=== PATIENT | male | born 1975 | race Caucasian/White ===

== ENCOUNTER 2021-01-24 07:09 | Inpatient (IN) | payer MEDICAID, SELFPAY ==
[2021-01-24] VITALS (58 sets, daily range): BP systolic 115–224; BP diastolic 78–155; PULSE 46–114; RESP 0–27; TEMP 36.4–37.1; O2SAT 91–100; BMI 33.9
[2021-01-24 07:33] LABS: Glucose Point of Care 137 mg/dL (70-110)
[2021-01-24] MEDS: nicardipine 20 MG/200 ML PREMIX 50 MG IV (07:33)
--- NOTE | 2021-01-24 07:40 | CT_ITS ---
WS: [id number] CT HEAD NONCONTRAST HISTORY: Symptoms of Acute Stroke TECHNIQUE: Contiguous axial imaging performed through the brain in 2.5 mm imaging. Bone and soft tiss ue windows. Sagittal and coronal reformats reviewed. All CT scans at [facility] use at ast one of these dose optimization techniques: automated exposure control; mA and/or kV adjustment pe r patient size (includes targeted exams where dose is matched to clinical indication); or iterative r econstruction. DLP: 944.86 mGy.cm COMPARISON: 01/31/2017 No evidence for an acute intracranial hemorrhage. New area of decreased attenuation in obliteration o f the helm-white matter differentiation involving the posterior LEFT parietal lobe. Additional remote infarct in the RIGHT cerebellum with volume loss. There are a few areas of decreased attenuation in the anterior limbs of the internal capsule from prior lacunae. There are mild atrophy. Ventricles: Normal size with no hydrocephalus. Paranasal sinuses: As visualized are clear. Mastoid air cells: Well pneumatized. Calvarium and scalp: Skull is intact with no soft tissue edema or swelling. CT/CT head wo con* [id number] IMPRESSION: 1. Suspicious for small acute infarct in the posterior LEFT parietal lobe. 2. Remote RIGHT cerebellar infarct with encephalomalacia. 3. Small lacunar infarcts in the anterior limbs of the internal capsules. Notified Osman Ugarte DO at 01/24/2021 8:14 AM.
--- NOTE | 2021-01-24 07:40 | ECG_ITS ---
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 Measurements Intervals [place] Rate: 77 P: 31 CA: 153 QRS: -12 QRSD: 105 T: 26 QT: 390 QTc: 443 Interpretive Statements SINUS RHYTHM POSSIBLE LEFT VENTRICULAR HYPERTROPHY [VOLTAGE CRITERIA PLUS LAE OR QRS WIDENING] POSSIBLE SEPTAL MYOCARDIAL INFARCTION , OF INDETERMINATE AGE [30 ms Q WAVE IN V1/V2] Compared to ECG 07/26/2017 00:11:39 Myocardial infarct finding now present Electronically Signed On 01-24-2021 12:55:22 CDT by Debbi Langley M.D. [id number]
--- NOTE | 2021-01-24 07:41 | W.ED.NEUROSD ---
HPI - Neuro Symptoms/Deficit General: Chief Complaint: Neuro Symptoms/Deficit Stated Complaint: STROKE SYMPTOMS Time Seen by Provider: 01/24/21 07:18 History of Present Illness: HPI Narrative: 45-year-old male presents emergency room with complaint of confusion difficulty speaking. It began last night. He denies any chest pain or difficulty breathing. Patient previously had a stroke. He was could previously on Eliquis because of atrial fibrillation but had stopped it. Onset (ago): hour(s) (>12 hrs) Timing confirmed by: spouse (Common-law ) Location: speech History of same: No Severity: mild Quality: weak Relieving factors: none Exacerbating factors: none Context: gradual onset Associated symptoms: Deny chest pain, cough, diaphoresis, fevers/chills, headache(s), anorexia, malaise, nausea, seizures, short of breath, syncope, tingling, vertigo, vomiting or weakness Treatments Prior to Arrival: none Review of Systems Const: Denies: malaise or diaphoresis ENMT: Denies: throat pain, ear or mastoid pain, nasal discharge or nasal congestion Card: Denies: chest pain or syncope Resp: Denies: dyspnea, productive cough or non-productive cough GI: Denies: nausea or vomiting : Denies: flank pain, dysuria, urinary frequency or urinary urgency Skin/Breast: Denies: rash or pruritus Neuro: Denies: headache(s) or vertigo PFSH ED PFSH: Medical History (Updated 01/24/21 @ 13:45 by Osman Ugarte DO) Atrial fibrillation CVA (cerebral vascular accident) Prior history of cerebellar CVA 2017 Hypertension Nephrolithiasis Surgical History (Updated 01/24/21 @ 10:51 by Moustapha Braden MD) H/O hand surgery History of cholecystectomy Family History (Updated 01/24/21 @ 10:52 by Moustapha Braden MD) Other Diabetes Stroke Social History (Updated 01/24/21 @ 10:52 by Moustapha Braden MD) Smoking and tobacco status: current every day smoker Alcohol intake: never Substance/Drug Use: current Substance/Drug use type: Marijuana NIH stroke score NIHSS: Level Of Consciousness - 1a: 0 Level Of Consciousness Questions - 1b: Both Correct Level Of Consciousness Commands - 1c: Both Correct Best Gaze - 2: Normal Visual Yanez - 3: No Visual Loss Facial Palsy - 4: Normal Motor Arm Right - 5: No Drift Motor Arm Left - 5: No Drift Motor Leg Right - 6: No Drift Motor Leg Left - 6: No Drift Limb Ataxia - 7: Absent Sensory - 8: Normal Best Language - 9: No Aphasia Dysarthia - 10: Mild/Moderate Dysarthia Extinction And Inattention - 11: 0 Score: Total Score: 1 Physical Exam Const: COMMON NORMALS: no acute distress GENERAL APPEARANCE: cooperative and comfortable ORIENTATION/CONSCIOUSNESS: Yes awake, Yes oriented to person, Yes oriented to place and Yes oriented to time HENMT: COMMON NORMALS: normocephalic, atraumatic and hearing grossly normal bilaterally HEAD & SCALP: normocephalic and atraumatic Eye: COMMON NORMALS: Equal, round and reactive pupils present, EOMs intact bilaterally, conjunctivae normal and no scleral icterus CONJUNCTIVA: Yes conjunctivae normal PUPIL: Yes Equal, round and reactive pupils present Neck/C-Spine: COMMON NORMALS: no JVD Resp: COMMON NORMALS: normal respiratory effort, No retractions, No use of accessory muscles and clear to auscultation bilaterally AUSCULTATION: clear to auscultation bilaterally Cardio: COMMON NORMALS: no JVD, regular rate, regular rhythm and No murmurs present (Cardio) RATE: regular rate RHYTHM: regular rhythm GI: COMMON NORMALS: Soft to palpation and No hepatosplenomegaly present AUSCULTATION: Yes normoactive bowel sounds PALPATION: Yes Soft to palpation, No Tenderness to palpation present (GI), No Guarding due to palpation present (GI) and Yes No hepatosplenomegaly present Extremity: COMMON NORMALS: normal to inspection, capillary refill normal, no clubbing, cyanosis or edema, no calf tenderness and no pedal edema Neuro: SENSORIUM/ORIENTATION: Yes oriented to person, Yes oriented to place and Yes oriented to time Skin: COMMON NORMALS: no rashes or lesions noted GENERAL SKIN EXAM: no rashes or lesions noted Course Vital Signs: Vital signs: Vital Signs Temperature 97.5 F L 01/24/21 07:21 Pulse Rate 86 01/24/21 12:15 Respiratory Rate 11 L 01/24/21 12:15 Blood Pressure 138/90 01/24/21 12:15 Pulse Oximetry 96 01/24/21 12:15 MDM - Neuro Symptoms/Deficit MDM Narrative: Medical decision making narrative: Initial stroke score was 1 with some dysarthria. Going back to the room he did actually worsen a little bit he was still able to do [id number] had no pronator pronator drift drift visual deficits or numbness or tingling but had increased dysarthria was still following commands. Symptoms began last night. CT of his head shows an area in the left parietal that is evolving. There is nothing on the CTA. We have started him on nicardipine his initial blood pressure 224 155 goal is to keep him around 180 systolic. Discussed with hospitalist orders written Lab Data: Labs: Lab Results 01/24/21 01/24/21 01/24/21 Range/Units 07:25 07:25 07:25 WBC 7.9 (4.0-10.0) 10^3/ uL RBC 5.70 H (4.1-5.3) 10^6/u L Hgb 16.7 H (11.7-16.6) g/dL Hct 50.4 (42.0-52.0) % MCV 88.4 (80-94) fL MCH 29.3 (28.0-34.0) pg MCHC 33.1 (30.0-36.0) g/dL RDW 12.4 (12.1-15.1) % Plt Count 238 (130-400) 10^3/c mm MPV 11.3 H (7.4-10.4) fL Neut % (Auto) 55.2 % Lymph % (Auto) 31.2 % [place] % (Auto) 7.8 % Eos % (Auto) 4.2 % Baso % (Auto) 0.6 % Neut # (Auto) 4.37 (1.8-7.7) 10^3/u L Lymph # (Auto) 2.5 (0.8-4.8) 10^3/u L [place] # (Auto) 0.6 (0.2-0.9) 10^3/u L Eos # (Auto) 0.3 (0.0-0.8) 10^3/u L Baso # (Auto) 0.1 (0.0-0.1) 10^3/u L Nucleated RBC % (a uto) 0 % Nucleated RBCs # 0.0 /100WBC PT 12.80 (12.1-14.9) SECO NDS INR 0.93 (0.8-1.2) APTT 24.1 (23.9-36.7) SECO NDS Sodium (136-145) mmol/L Potassium (3.5-5.1) mmol/L Chloride (98-107) mmol/L Carbon Dioxide (22-29) mmol/L Anion Gap (5-19) BUN (6-20) mg/dL Creatinine (0.7-1.2) mg/dL GFR Calculation (90-130) mL/min Glucose (65-115) mg/dL POC Glucose 137 H (70-110) mg/dL Estimat Average Gl ucose Hemoglobin A1c (4.0-6.0) % Calculated Osmolal ity (285-295) mOsm/k g Calcium (8.5-10.5) mg/dL Total Bilirubin (0.15-1.2) mg/dL AST (0-40) U/L ALT (0-41) U/L Alkaline Phosphata se (40-130) IU/L Troponin T Baselin e (0-15) ng/L Troponin T 120 Min [place] (0-15) ng/L Delta Troponin T (0-10) ABS# Total Protein (6.6-8.7) g/dL Albumin (3.5-5.2) g/dL Globulin (1.3-4.6) g/dL TSH (0.27-4.20) uIU/ mL Urine Color (Yellow) Urine Appearance (CLEAR) Urine pH (5-7) Ur Specific Gravit y (1.005-1.030) Urine Protein (Negative) Urine Glucose (UA) (Normal) Urine Ketones (Negative) Urine Blood (Negative) Urine Nitrate (Negative) Urine Bilirubin (Negative) Urine Urobilinogen (Negative) mg/dL Ur Leukocyte Chioma ase (Negative) Urine RBC (0-2) /hpf Urine WBC (0-5) /hpf Ur Squamous Epith Cells (0-5) /hpf Amorphous Sediment Urine Bacteria (NONE) /hpf Urine Opiates Scre en (Negative) ng/mL Ur Barbiturates Sc reen (Negative) ng/mL Ur Phencyclidine S crn (Negative) ng/mL Ur Amphetamines Sc reen (Negative) ng/mL U Benzodiazepines Scrn (Negative) ng/mL Urine Cocaine Scre en (Negative) ng/mL U Marijuana (THC) Screen (Negative) ng/mL 01/24/21 01/24/21 01/24/21 Range/Units 07:25 07:25 07:25 WBC (4.0-10.0) 10^3/ uL RBC (4.1-5.3) 10^6/u L Hgb (11.7-16.6) g/dL Hct (42.0-52.0) % MCV (80-94) fL MCH (28.0-34.0) pg MCHC (30.0-36.0) g/dL RDW (12.1-15.1) % Plt Count (130-400) 10^3/c mm MPV (7.4-10.4) fL Neut % (Auto) % Lymph % (Auto) % [place] % (Auto) % Eos % (Auto) % Baso % (Auto) % Neut # (Auto) (1.8-7.7) 10^3/u L Lymph # (Auto) (0.8-4.8) 10^3/u L [place] # (Auto) (0.2-0.9) 10^3/u L Eos # (Auto) (0.0-0.8) 10^3/u L Baso # (Auto) (0.0-0.1) 10^3/u L Nucleated RBC % (a uto) % Nucleated RBCs # /100WBC PT (12.1-14.9) SECO NDS INR (0.8-1.2) APTT (23.9-36.7) SECO NDS Sodium 140 (136-145) mmol/L Potassium 4.3 (3.5-5.1) mmol/L Chloride 106 (98-107) mmol/L Carbon Dioxide 24 (22-29) mmol/L Anion Gap 14.3 (5-19) BUN 13 (6-20) mg/dL Creatinine 1.0 (0.7-1.2) mg/dL GFR Calculation 81.6 L (90-130) mL/min Glucose 135 H (65-115) mg/dL POC Glucose (70-110) mg/dL Estimat Average Gl ucose 108 Hemoglobin A1c 5.4 (4.0-6.0) % Calculated Osmolal ity 292 (285-295) mOsm/k g Calcium 8.7 (8.5-10.5) mg/dL Total Bilirubin 0.2 (0.15-1.2) mg/dL AST 14 (0-40) U/L ALT 26 (0-41) U/L Alkaline Phosphata se 91 (40-130) IU/L Troponin T Baselin e 15 (0-15) ng/L Troponin T 120 Min [place] (0-15) ng/L Delta Troponin T (0-10) ABS# Total Protein 6.5 L (6.6-8.7) g/dL Albumin 4.1 (3.5-5.2) g/dL Globulin 2.4 (1.3-4.6) g/dL TSH (0.27-4.20) uIU/ mL Urine Color (Yellow) Urine Appearance (CLEAR) Urine pH (5-7) Ur Specific Gravit y (1.005-1.030) Urine Protein (Negative) Urine Glucose (UA) (Normal) Urine Ketones (Negative) Urine Blood (Negative) Urine Nitrate (Negative) Urine Bilirubin (Negative) Urine Urobilinogen (Negative) mg/dL Ur Leukocyte Chioma ase (Negative) Urine RBC (0-2) /hpf Urine WBC (0-5) /hpf Ur Squamous Epith Cells (0-5) /hpf Amorphous Sediment Urine Bacteria (NONE) /hpf Urine Opiates Scre en (Negative) ng/mL Ur Barbiturates Sc reen (Negative) ng/mL Ur Phencyclidine S crn (Negative) ng/mL Ur Amphetamines Sc reen (Negative) ng/mL U Benzodiazepines Scrn (Negative) ng/mL Urine Cocaine Scre en (Negative) ng/mL U Marijuana (THC) Screen (Negative) ng/mL 01/24/21 01/24/21 01/24/21 Range/Units 07:25 07:56 07:56 WBC (4.0-10.0) 10^3/ uL RBC (4.1-5.3) 10^6/u L Hgb (11.7-16.6) g/dL Hct (42.0-52.0) % MCV (80-94) fL MCH (28.0-34.0) pg MCHC (30.0-36.0) g/dL RDW (12.1-15.1) % Plt Count (130-400) 10^3/c mm MPV (7.4-10.4) fL Neut % (Auto) % Lymph % (Auto) % [place] % (Auto) % Eos % (Auto) % Baso % (Auto) % Neut # (Auto) (1.8-7.7) 10^3/u L Lymph # (Auto) (0.8-4.8) 10^3/u L [place] # (Auto) (0.2-0.9) 10^3/u L Eos # (Auto) (0.0-0.8) 10^3/u L Baso # (Auto) (0.0-0.1) 10^3/u L Nucleated RBC % (a uto) % Nucleated RBCs # /100WBC PT (12.1-14.9) SECO NDS INR (0.8-1.2) APTT (23.9-36.7) SECO NDS Sodium (136-145) mmol/L Potassium (3.5-5.1) mmol/L Chloride (98-107) mmol/L Carbon Dioxide (22-29) mmol/L Anion Gap (5-19) BUN (6-20) mg/dL Creatinine (0.7-1.2) mg/dL GFR Calculation (90-130) mL/min Glucose (65-115) mg/dL POC Glucose (70-110) mg/dL Estimat Average Gl ucose Hemoglobin A1c (4.0-6.0) % Calculated Osmolal ity (285-295) mOsm/k g Calcium (8.5-10.5) mg/dL Total Bilirubin (0.15-1.2) mg/dL AST (0-40) U/L ALT (0-41) U/L Alkaline Phosphata se (40-130) IU/L Troponin T Baselin e (0-15) ng/L Troponin T 120 Min [place] (0-15) ng/L Delta Troponin T (0-10) ABS# Total Protein (6.6-8.7) g/dL Albumin (3.5-5.2) g/dL Globulin (1.3-4.6) g/dL TSH 0.56 (0.27-4.20) uIU/ mL Urine Color Yellow (Yellow) Urine Appearance Clear (CLEAR) Urine pH 6.5 (5-7) Ur Specific Gravit y 1.020 (1.005-1.030) Urine Protein 1+ H (Negative) Urine Glucose (UA) Norm (Normal) Urine Ketones Negative (Negative) Urine Blood Neg (Negative) Urine Nitrate Negative (Negative) Urine Bilirubin Neg (Negative) Urine Urobilinogen Norm (Negative) mg/dL Ur Leukocyte Chioma ase Negative (Negative) Urine RBC None (0-2) /hpf Urine WBC Rare (0-5) /hpf Ur Squamous Epith Cells None (0-5) /hpf Amorphous Sediment Not Reportable Urine Bacteria Trace (NONE) /hpf Urine Opiates Scre en Negative (Negative) ng/mL Ur Barbiturates Sc reen Negative (Negative) ng/mL Ur Phencyclidine S crn Negative (Negative) ng/mL Ur Amphetamines Sc reen Negative (Negative) ng/mL U Benzodiazepines Scrn Negative (Negative) ng/mL Urine Cocaine Scre en Negative (Negative) ng/mL U Marijuana (THC) Screen Positive H (Negative) ng/mL 01/24/21 Range/Units 10:00 WBC (4.0-10.0) 10^3/ uL RBC (4.1-5.3) 10^6/u L Hgb (11.7-16.6) g/dL Hct (42.0-52.0) % MCV (80-94) fL MCH (28.0-34.0) pg MCHC (30.0-36.0) g/dL RDW (12.1-15.1) % Plt Count (130-400) 10^3/c mm MPV (7.4-10.4) fL Neut % (Auto) % Lymph % (Auto) % [place] % (Auto) % Eos % (Auto) % Baso % (Auto) % Neut # (Auto) (1.8-7.7) 10^3/u L Lymph # (Auto) (0.8-4.8) 10^3/u L [place] # (Auto) (0.2-0.9) 10^3/u L Eos # (Auto) (0.0-0.8) 10^3/u L Baso # (Auto) (0.0-0.1) 10^3/u L Nucleated RBC % (a uto) % Nucleated RBCs # /100WBC PT (12.1-14.9) SECO NDS INR (0.8-1.2) APTT (23.9-36.7) SECO NDS Sodium (136-145) mmol/L Potassium (3.5-5.1) mmol/L Chloride (98-107) mmol/L Carbon Dioxide (22-29) mmol/L Anion Gap (5-19) BUN (6-20) mg/dL Creatinine (0.7-1.2) mg/dL GFR Calculation (90-130) mL/min Glucose (65-115) mg/dL POC Glucose (70-110) mg/dL Estimat Average Gl ucose Hemoglobin A1c (4.0-6.0) % Calculated Osmolal ity (285-295) mOsm/k g Calcium (8.5-10.5) mg/dL Total Bilirubin (0.15-1.2) mg/dL AST (0-40) U/L ALT (0-41) U/L Alkaline Phosphata se (40-130) IU/L Troponin T Baselin e (0-15) ng/L Troponin T 120 Min [place] 13.62 (0-15) ng/L Delta Troponin T -1.38 L (0-10) ABS# Total Protein (6.6-8.7) g/dL Albumin (3.5-5.2) g/dL Globulin (1.3-4.6) g/dL TSH (0.27-4.20) uIU/ mL Urine Color (Yellow) Urine Appearance (CLEAR) Urine pH (5-7) Ur Specific Gravit y (1.005-1.030) Urine Protein (Negative) Urine Glucose (UA) (Normal) Urine Ketones (Negative) Urine Blood (Negative) Urine Nitrate (Negative) Urine Bilirubin (Negative) Urine Urobilinogen (Negative) mg/dL Ur Leukocyte Chioma ase (Negative) Urine RBC (0-2) /hpf Urine WBC (0-5) /hpf Ur Squamous Epith Cells (0-5) /hpf Amorphous Sediment Urine Bacteria (NONE) /hpf Urine Opiates Scre en (Negative) ng/mL Ur Barbiturates Sc reen (Negative) ng/mL Ur Phencyclidine S crn (Negative) ng/mL Ur Amphetamines Sc reen (Negative) ng/mL U Benzodiazepines Scrn (Negative) ng/mL Urine Cocaine Scre en (Negative) ng/mL U Marijuana (THC) Screen (Negative) ng/mL Discharge Plan Discharge Patient Disposition: Admitted As Inpatient Admit Provider: Moustapha Braden Clinical Impression: CVA (cerebral vascular accident), Accelerated hypertension Condition: Stable Coding Level of Care Code ED Donor Services Technician for Alexandrag Fwd Exam Comprehensive
[2021-01-24 07:53] LABS: Basophils # 0.1 10^3/uL (0.0-0.1); Basophils % 0.6 %; Eosinophils # 0.3 10^3/uL (0.0-0.8); Eosinophils % 4.2 %; Hematocrit 50.4 % (42.0-52.0); Hemoglobin 16.7 g/dL (11.7-16.6); Lymphocytes # 2.5 10^3/uL (0.8-4.8); Lymphocytes % 31.2 %; Mean Corpuscular HGB Conc 33.1 g/dL (30.0-36.0); Mean Corpuscular Hemoglobin 29.3 pg (28.0-34.0); Mean Corpuscular Volume 88.4 fL (80-94); Mean Platelet Volume 11.3 fL (7.4-10.4); Monocytes # 0.6 10^3/uL (0.2-0.9); Monocytes % 7.8 %; Neutrophils # 4.37 10^3/uL (1.8-7.7); Neutrophils % 55.2 %; Nucleated Red Blood Cells % 0 %; Platelet Count 238 10^3/cmm (130-400); Red Cell Distribution Width 12.4 % (12.1-15.1); White Blood Count 7.9 10^3/uL (4.0-10.0)
[2021-01-24 08:06] LABS: Alanine Aminotransferase 26 U/L (0-41); Albumin Level 4.1 g/dL (3.5-5.2); Alkaline Phosphatase 91 IU/L (40-130); Aspartate Amino Transferase 14 U/L (0-40); Blood Urea Nitrogen 13 mg/dL (6-20); Calcium 8.7 mg/dL (8.5-10.5); Carbon Dioxide 24 mmol/L (22-29); Chloride 106 mmol/L (98-107); Globulin 2.4 g/dL (1.3-4.6); Glomerular Filtration Rate 81.6 mL/min (90-130); Glucose 135 mg/dL (65-115); Osmolality Calculated 292 mOsm/kg (285-295); Sodium 140 mmol/L (136-145); Total Bilirubin 0.2 mg/dL (0.15-1.2); Total Protein 6.5 g/dL (6.6-8.7)
[2021-01-24 08:07] LABS: Troponin(5th) Baseline 15 ng/L (0-15)
[2021-01-24 08:08] LABS: Add Urine Microscopic? YES; Bilirubin Urine Neg (Negative); Blood Urine Neg (Negative); Glucose Urine UA Norm (Normal); Ketones Urine Negative (Negative); Leukocyte Esterase Urine Negative (Negative); Nitrate Urine Negative (Negative); Protein Urine 1+ (Negative); Urine Appearance Clear (CLEAR); Urine Color Yellow (Yellow); Urobilinogen Urine Norm (Negative); pH Urine 6.5 (5-7)
[2021-01-24 08:09] LABS: Add Urine Culture? No; Amphetamines Screen Urine Negative (Negative); Bacteria Urine TRACE /hpf; Barbiturates Screen Urine Negative (Negative); Benzodiazepines Screen Urine Negative (Negative); Cocaine Screen Urine Negative (Negative); Opiate Screen Urine Negative (Negative); PCP Screen Urine Negative (Negative); THC Screen Urine Positive (Negative); WBC Urine RARE /hpf (0-5)
[2021-01-24 08:10] LABS: Anion Gap 14.3 (5-19); Potassium 4.3 mmol/L (3.5-5.1)
[2021-01-24 08:18] LABS: INR 0.93 (0.8-1.2)
[2021-01-24 08:19] LABS: Partial Thromboplastin Time 24.1 SECONDS (23.9-36.7)
[2021-01-24] MEDS: nicardipine 20 MG/200 ML PREMIX 200 MG IV (08:54)
--- NOTE | 2021-01-24 09:40 | ECG_ITS ---
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 Measurements Intervals [place] Rate: 87 P: 62 LA: 144 QRS: 0 QRSD: 100 T: 57 QT: 360 QTc: 434 Interpretive Statements SINUS RHYTHM MINIMAL VOLTAGE CRITERIA FOR LVH, CONSIDER NORMAL VARIANT [MEETS CRITERIA IN ONE OF: R(aVL), S(V1), R(V5), R(V5/V6)+S(V1)] SEPTAL MYOCARDIAL INFARCTION , PROBABLY OLD [40+ ms Q WAVE IN V1/V2] Compared to ECG 01/24/2021 07:28:36 No significant changes Electronically Signed On 01-24-2021 13:01:22 CDT by Debbi Langley M.D. [email or web address]
--- NOTE | 2021-01-24 09:49 | CT_ITS ---
WS: [id number] CT ANGIOGRAM CEREBRAL AND CAROTID ARTERIES HISTORY: cva TECHNIQUE: CT angiogram is performed of the carotid and cerebral arteries. During arterial injection imaging is obtained from the skull vertex to the aortic arch in 1.25 mm imaging. Coronal and sagittal reformats are submitted. Additional multi planar reformats of the carotid and cerebral arteries are submitted, MIP imaging also reviewed. NASCET criteria utilized. All CT scans at [facility] use at least one of these dose optimization techniques: automated exposure control; mA and/or kV ad justment per patient size (includes targeted exams where dose is matched to clinical indication); or iterative reconstruction. CONTRAST: Omnipaque 350; 95 mL IV. DLP: 2897.04 mGy.cm COMPARISON: None available. Carotid Angiogram: Right carotid: Common carotid artery: Arises normally from the innominate artery. No significant plaque or stenosis. Internal carotid artery: Very mild intimal thickening throughout the common carotid artery and the bi furcation. No high-grade stenosis. External carotid artery: Patent. Left carotid: Common carotid artery: Arises normally from the aorta. No significant plaque or stenosis. Internal carotid artery: Mild intimal thickening with no high-grade stenosis. External carotid artery: Patent. Right vertebral artery: Unremarkable. Left vertebral artery: Unremarkable. Arises normally from the subclavian artery. Subclavian arteries: No stenosis or significant abnormality. Upper thorax: Normal. Thyroid gland: Normal. Osseous structures: Unremarkable. CEREBRAL ANGIOGRAM: Intracranial vertebral arteries: Negative. Basilar artery: No significant stenosis or occlusion. No aneurysm. Intracranial Internal carotid arteries: Very mild irregularity in the aparicio of the intracranial carot id artery through the petrous, cavernous and supraclinoid carotids. No stenosis. Middle cerebral arteries: Normal. Anterior cerebral arteries and ACOM: Normal. Posterior cerebral arteries and PCOM's: Normal. Dominant RIGHT transverse sinus. 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 Cor responding larger caliber RIGHT jugular vein. Mastoid air cells: Normal. Paranasal sinuses: Small polyp or mucous retention cyst in the LEFT maxillary sinus. Calvarium: Normal. CT/CT angio headneck* [id number] IMPRESSION: 1. No significant extracranial carotid artery stenosis. 2. Mild intimal thickening and irregularity involving the intracranial carotid arteries bilaterally with no high-grade stenosis. 3. Small caliber LEFT transverse sinus is probably normal variant. 4. Unremarkable [place].
[2021-01-24] MEDS: nicardipine 20 MG/200 ML PREMIX 150 MG IV ×2 (09:58→12:11)
[2021-01-24 10:23] LABS: Troponin 5 2HR 13.62 ng/L (0-15)
[2021-01-24 10:26] LABS: Troponin 5 2HR Delta -1.38 ABS# (0-10)
--- NOTE | 2021-01-24 10:47 | P.HP_ITS ---
Providers/Chief Complaint Admitting Physician: Moustapha Braden MD Primary Care Provider: YOUSUF Vázquez Chief Complaint: STROKE SYMPTOMS History of Present Illness Miguel Angel Hunt is a 45 year old male that has history of confusion since yesterday around 6 PM. He has had some trouble speaking, rambling at times and unable to answer questions. He does not seem to be weak on either side according to his . He has previous history of cerebellar stroke and atrial fibrillation. Medication was stopped for this as well as hypertension about 1 year ago by the patient. He has had no recent fevers. He denies any headache or chest discomfort. reports that he has had a headache in the last several days, more on the left side. Review of Systems General: Reports: 10 or more systems reviewed and unremarkable except in HPI and below Const: Denies: fever(s) Eyes: Reports: change in vision ENMT: Denies: throat pain Card: Denies: chest pain Resp: Denies: dyspnea GI: Denies: abdominal pain or nausea : Denies: flank pain Musc: Denies: neck pain Skin/Breast: Denies: rash Neuro: Reports: headache(s) Psych: Denies: anxiety Endo: Denies: polyuria Daniel/Lymph: Denies: easy bruising Medications/Allergies Home Medications Medication Instructions Recorded Confirmed Last Taken Type No Known Home Medications 01/24/21 01/24/21 Unknown History Allergies Allergy/AdvReac Type Severity Reaction Status Date / Time No Known Allergies Allergy Verified 10/31/20 17:32 PFSH Acute PFSH: Medical History (Updated 01/24/21 @ 10:58 by Moustapha Braden MD) Atrial fibrillation CVA (cerebral vascular accident) Prior history of cerebellar CVA 2017 Hypertension Nephrolithiasis Surgical History (Updated 01/24/21 @ 10:51 by Moustapha Braden MD) H/O hand surgery History of cholecystectomy Family History (Updated 01/24/21 @ 10:52 by Moustapha Braden MD) Other Diabetes Stroke Social History (Updated 01/24/21 @ 10:52 by Moustapha Braden MD) Smoking and tobacco status: current every day smoker Alcohol intake: never Substance/Drug Use: current Substance/Drug use type: Marijuana Vitals/I&O/Wt Last Vital Signs Temp 97.5 F L 01/24/21 07:21 Pulse 87 01/24/21 10:00 Resp 15 01/24/21 10:00 BP 183/116 01/24/21 10:00 Pulse Ox 98 01/24/21 09:30 01/23/21 01/24/21 01/24/21 22:59 06:59 14:59 Intake Total 393.333 / 393.333 Balance 393.333 / 393.333 Weight last 48 hrs Weight 113.398 kg Physical Exam Narrative: EXAM NARRATIVE: General exam is a white male, who has some difficulty answering questions and following directions. Neurologic: NIH scale 4 according to the emergency department physician. On exam he has equal movements and no weakness. There is no facial droop. I was not able to test gait during my exam. Cerebellar function grossly appeared intact. When asked to follow a direction he would sometimes move the wrong body part. He is unable to identify the year, or his 's name. With repetitive questioning/direction this would improve. HEENT: Pupils equally round. Oropharynx clear. Neck is supple no lymphadenopathy or thyromegaly Cardiovascular regular rhythm without murmur, no S3 or S4 Lungs clear Abdomen is soft with positive bowel sounds. No obvious organomegaly was deferred Extremities no cyanosis clubbing or edema, cap refill brisk Skin no rash Data : 01/24/21 07:25 01/24/21 07:25 Other data: INR and PTT are normal Troponin is 13.6 LFTs normal Urine drug screen positive for marijuana UA negative Noncontrast head CT suspicious for small acute infarct left posterior parietal lobe and remote right cerebellar infarct. Small lacunar infarcts are also noted anterior limbs of internal capsules EKG demonstrates sinus rhythm, left axis deviation, nonspecific ST-T wave changes and question LVH A&P Assessment and plan (1) CVA (cerebral vascular accident): Left posterior parietal lobe acute infarct. Previous right cerebellar infarct. Aspirin, Plavix, statin Permissive hypertension. Secondary to markedly elevated blood pressure of 224/1 55 on presentation he has been started on antihypertensives to lower pressure to approximately 15% of that on presentation. Currently on nicardipine and esmolol Echocardiogram CTA head and neck Lipid profile in the morning PT/OT/ST Check TSH Check chest x-ray Status: Acute (2) Tobacco dependency: Counseling Status: Acute (3) Hypertension: See notations above Status: Acute Additional A&P Information History of atrial fibrillation. Secondary to acute stroke old any anticoagulation currently. He has not been on this for over 1 year. He is currently in sinus rhythm. Elevated glucose, check A1c Full code GI prophylaxis with Protonix Lovenox for DVT prophylaxis Attestations Medical Necessity Statement*: Will need greater than 2 midnight stay for CVA with markedly elevated blood pressure Critical Care Time: The high probability of a clinically significant, sudden or life threatening deterioration of the patient's [neurologic, cardiovascular] system(s) required my full and direct attention, intervention and personal management. The critical care time is as shown. This time is in addition to time spent performing any reported procedures but includes the following: [x] Data and vital sign review and interpretation [x] Patient assessment, examination and intervention [x] Documentation [x] Medication orders and management Critical Care Time (min): 46 Coding Level of Care Code Acute Vaccine Specialist for Alexandrag Fwd Diagnoses CVA (cerebral vascular accident) I63.9 Tobacco dependency F17.200 Hypertension I10
[2021-01-24] MEDS: iohexol 350 mg/mL 100 mL Btl IV (10:53)
--- NOTE | 2021-01-24 11:38 | USCV_ITS ---
Miguel Angel Hunt Age: 45 Gender: M : 1975 Exam Date: 01/24/2021 13:08 Ordering Phys: Moustapha Braden MD Technologist: JEAN [place] [facility] [place]: CVA BP: 138 / 100 HR: 61 Rhythm: Sinus Technical Quality: Technically difficult study MEASUREMENTS (Male / Female) Normal Values 2D ECHO LV Diastolic Diameter PLAX 4.7 cm 4.2 - 5.9 / 3.9 - 5.3 cm LV Systolic Diameter PLAX 4.1 cm LV Chamber Size 3.6 cm IVS Diastolic Thickness 1.9 cm 0.6 - 1.0 / 0.6 - 0.9 cm IVS Systolic Thickness 1.9 cm LVPW Diastolic Thickness 1.4 cm 0.6 - 1.0 / 0.6 - 0.9 cm LVPW Systolic Thickness 2.0 cm RV Chamber Size 2.2 cm LVOT Diameter 2.0 cm LV Ejection Fraction 2D Teich 14.3 % LV Ejection Fraction MOD 2C 74.1 % LV Ejection Fraction 2C AL 75.3 % LA Diameter 4.0 cm LA Width 3.5 cm LA Height 3.8 cm RA Width 3.4 cm RA Height 4.4 cm Aorta at Sinotubular Diameter 3.4 cm M-MODE LV Diastolic Diameter MM 5.3 cm 4.2 - 5.9 / 3.9 - 5.3 cm LV Systolic Diameter MM 3.0 cm LV Ejection Fraction MM Teich 73.7 % IVS Diastolic Thickness MM 1.0 cm 0.6 - 1.0 / 0.6 - 0.9 cm IVS Systolic Thickness MM 1.4 cm LVPW Diastolic Thickness MM 1.2 cm 0.6 - 1.0 / 0.6 - 0.9 cm LVPW Systolic Thickness MM 1.8 cm Aortic Annulus Diameter 3.7 cm LA Ao Ratio MM 1.3 MV E Point Septal Separation 0.8 cm DOPPLER AV Peak Velocity 139.0 cm/s LVOT Peak Velocity 105.0 cm/s AV Area Cont Eq vti 2.6 cm squared AV Area Cont Eq pk 2.5 cm squared MV Area PHT 3.0 cm squared Mitral E to A Ratio 0.9 MV E' Velocity 45.5 cm/s Mitral E to MV E' Ratio 9.9 Mitral E to LV E' Lateral Ratio 8.5 Mitral E to LV E' Septal Ratio 11.7 TR Peak Velocity 145.2 cm/s TR Peak Gradient 8.4 mmHg TR Mean Velocity 105.2 cm/s TR Mean Gradient 5.3 mmHg TR Velocity Time Integral 33.3 cm TV Peak E Velocity 60.0 cm/s Right Atrial Pressure 3.0 mmHg Pulmonary Artery Systolic Pressu 11.4 mmHg PV Peak Velocity 68.0 cm/s RV Acceleration Time 0.1 s RV Ejection Time 0.4 s RV AcT/ET 0.4 FINDINGS Left Ventricle Possibly normal LV size with slightly diminished ejection fraction of 50 to 55%. Relative hypokinesia of the septum was noted. Right Ventricle Possibly of normal size ejection fraction. Right Atrium The right atrium is normal in size. Left Atrium No gross abnormalities noted Mitral Valve No gross abnormalities noted Aortic Valve No gross abnormalities noted Tricuspid Valve Structurally normal tricuspid valve without significant stenosis or regurgitation. Pulmonary artery systolic pressure is normal. Pulmonic Valve Structurally normal pulmonic valve without significant stenosis. There is no pulmonic regurgitation. Pericardium Normal pericardium without effusion. Aorta Normal ascending aorta dimension. CONCLUSIONS Possibly normal LV size with slightly diminished ejection fraction of 50 to 55%. Relative hypokinesia of the septum was noted. There is no pericardial effusion. There are no intracardiac masses. Comparison with the previous study is difficult because of the difference in the technical quality. Dr Israel Blackburn MD [facility] (Electronically Signed) Final Date: 24 January 2021 18:26 S
--- NOTE | 2021-01-24 11:38 | XR_ITS ---
WS: [id number] Exam: XR chest 1V portable [id number] Date/Time of Exam: 01/24/2021 11:40 AM Reason For Exam: CVA Comparison 01/22/2017. The lungs are fully inflated and clear. Cardiomediastinal structures unremarkable for portable techni que. No pleural effusions. Regional bony elements are intact. EKG leads superimpose the chest. XR/XR chest 1V portable [id number] IMPRESSION: 1. No acute cardiopulmonary finding.
[2021-01-24 11:57] LABS: Estmated Average Glucose 108; Hemoglobin A1C 5.4 % (4.0-6.0)
[2021-01-24 12:07] LABS: Thyroid Stimulating Hormone 0.56 uIU/mL (0.27-4.20)
[2021-01-24] MEDS: enoxaparin 40 mg/0.4 mL Syringe SUBCUT (12:11)
[2021-01-24] MEDS: sodium chloride 0.9% 1,000 ML 100 ML IV (12:18)
--- NOTE | 2021-01-24 13:40 | ECG_ITS ---
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 Measurements Intervals [place] Rate: 71 P: 34 MI: 136 QRS: -6 QRSD: 101 T: 21 QT: 430 QTc: 468 Interpretive Statements SINUS RHYTHM WITH OCCASIONAL VENTRICULAR PREMATURE COMPLEXES MODERATE VOLTAGE CRITERIA FOR LVH, CONSIDER NORMAL VARIANT [MEETS CRITERIA IN ONE OF: R(aVL), S(V1), R(V5), R(V5/V6)+S(V1)] POSSIBLE SEPTAL MYOCARDIAL INFARCTION [30 ms Q WAVE IN V1/V2], OF INDETERMINATE AGE Compared to ECG 01/24/2021 09:52:34 Ventricular premature complex(es) now present Myocardial infarct finding still present Electronically Signed On 01-24-2021 19:17:34 CDT by Debbi Langley M.D. [id number]
--- NOTE | 2021-01-24 14:23 | PC.RESP ---
Smoking Cessation information sent to patient.
[2021-01-24 14:44] LABS: Troponin 5 6HR 21.96 ng/L (0-15); Troponin 5 6HR Delta 6.96 ng/L (0-12)
[2021-01-24] MEDS: ondansetron 2 mg/ML SDV 2 mL 4 MG IVP (16:54)
[2021-01-24] MEDS: LORazepam 0.5 mg Tablet PO (16:54)
[2021-01-24] MEDS: atorvastatin 40 mg Tablet 80 MG PO (21:27)
[2021-01-25] VITALS (89 sets, daily range): BP systolic 131–221; BP diastolic 90–148; PULSE 52–101; RESP 0–23; TEMP 36.5–36.9; O2SAT 94–98
[2021-01-25] MEDS: LORazepam 0.5 mg Tablet PO ×2 (00:42→16:35)
[2021-01-25] MEDS: sodium chloride 0.9% 1,000 ML 100 ML IV ×2 (01:51→14:22)
[2021-01-25 04:20] LABS: Basophils % 0.4 %; Eosinophils # 0.1 10^3/uL (0.0-0.8); Eosinophils % 1.2 %; Hematocrit 49.1 % (42.0-52.0); Hemoglobin 16.4 g/dL (11.7-16.6); Lymphocytes # 2.3 10^3/uL (0.8-4.8); Lymphocytes % 24.1 %; Mean Corpuscular HGB Conc 33.4 g/dL (30.0-36.0); Mean Corpuscular Hemoglobin 29.1 pg (28.0-34.0); Mean Corpuscular Volume 87.1 fL (80-94); Mean Platelet Volume 11.2 fL (7.4-10.4); Monocytes # 0.8 10^3/uL (0.2-0.9); Monocytes % 8.1 %; Neutrophils # 6.31 10^3/uL (1.8-7.7); Neutrophils % 65.5 %; Nucleated Red Blood Cells % 0 %; Platelet Count 266 10^3/cmm (130-400); Red Blood Count 5.64 10^6/uL (4.1-5.3); Red Cell Distribution Width 12.4 % (12.1-15.1); White Blood Count 9.7 10^3/uL (4.0-10.0)
[2021-01-25 04:25] LABS: Anion Gap 14.2 (5-19); Blood Urea Nitrogen 9 mg/dL (6-20); Calcium 8.6 mg/dL (8.5-10.5); Carbon Dioxide 24 mmol/L (22-29); Chloride 104 mmol/L (98-107); Glomerular Filtration Rate 105.5 mL/min (90-130); Glucose 94 mg/dL (65-115); Magnesium 1.9 mg/dL (1.7-2.3); Osmolality Calculated 284 mOsm/kg (285-295); Potassium 4.2 mmol/L (3.5-5.1); Sodium 138 mmol/L (136-145)
[2021-01-25] MEDS: morphine 4 mg/mL SDV 1 mL 2 MG IVP (05:04)
--- NOTE | 2021-01-25 07:24 | PC.NURSE ---
Patient not cooperating with neuro exam. Pt pulls blankets up and goes back to sleep. No obvious weakness/changes noted with night nurse at bedside report.
--- NOTE | 2021-01-25 07:53 | P.PN_ITS ---
Subjective Subjective: Interval history: No events overnight. Patient without complaints but somewhat difficult communication secondary to receptive aphasia. Medications: Reviewed: Yes Vitals/I&O/Wt Last Vital Signs Temp 98.2 F 01/25/21 04:15 Pulse 62 01/25/21 06:00 Resp 13 01/25/21 06:00 BP 218/131 01/25/21 06:00 Pulse Ox 95 01/25/21 00:45 01/24/21 01/25/21 01/25/21 22:59 06:59 14:59 Intake Total 267.5 / 7470.655 8391 / 2043.333 Output Total 300 / 700 Balance -32.5 / 065.087 2706 / 1343.333 Weight last 48 hrs Weight 114.216 g Weight 113.398 kg Physical Exam Narrative: EXAM NARRATIVE: General exam is a white male without distress Neurologic: No abnormalities in strength. Receptive aphasia noted. HEENT: Pupils equally round. Oropharynx clear. Neck is supple no lymphadenopathy or thyromegaly Cardiovascular regular rhythm without murmur, no S3 or S4 Lungs clear Abdomen is soft with positive bowel sounds. No obvious organomegaly was deferred Extremities no cyanosis clubbing or edema, cap refill brisk Skin no rash Data : 01/25/21 03:04 01/25/21 03:04 A&P Assessment and plan (1) CVA (cerebral vascular accident): Left posterior parietal lobe acute infarct. Previous right cerebellar infarct. Aspirin, Plavix, statin Permissive hypertension. Secondary to markedly elevated blood pressure of 224/155 on presentation he has been started on antihypertensives to lower pressure to approximately 15% of that on presentation. He is now 36 hours out following CVA. Consider starting low-dose antihypertensive soon Echocardiogram demonstrated slightly low EF 50 to 55% with some hypokinesis septally. Could consider outpatient nuclear stress test. CTA head and neck demonstrated no flow-limiting stenosis Check lipid profile on this a.m.'s lab PT/OT/ST TSH was checked and normal. Status: Acute (2) Tobacco dependency: Counseling Status: Acute (3) Hypertension: See notations above Status: Acute Additional A&P Information History of atrial fibrillation. Secondary to acute stroke old any a nticoagulation currently. He has not been on this for over 1 year. He is currently in sinus rhythm. Consider outpatient event monitor Elevated glucose, A1c was checked and normal. Full code GI prophylaxis with Protonix Lovenox for DVT prophylaxis Possible transfer out of ICU later this evening or tomorrow morning. Attestations Medical Necessity Statement*: Need hospitalization following significant st roke for evaluation with therapies and patient with markedly elevated blood pressures as well. Coding Level of Care Code Acute Drier And Grinder Tender for Chg Fwd Diagnoses CVA (cerebral vascular accident) I63.9 Tobacco dependency F17.200 Hypertension I10
[2021-01-25 08:37] LABS: Chol HDL Ratio 5.89 mg/dL (1.0-5.00); Cholesterol 159 mg/dL (0-200); HDL Cholesterol 27 mg/dL (60-100); LDL Cholesterol Calculated 91 mg/dL (50-129); LDL HDL Ratio 3.37 RATIO (0.00-3.22); Triglycerides 204 mg/dL (0-150)
[2021-01-25] MEDS: pantoprazole DR 40 mg Tablet PO (10:04)
[2021-01-25] MEDS: clopidogrel 75 mg Tablet PO (10:04)
[2021-01-25] MEDS: aspirin 325 mg EC Tablet PO (10:04)
--- NOTE | 2021-01-25 10:32 | PC.CHAP ---
Pastoral Care Encounter/Spiritual Assessment Type of Contact [] Declined bleacher pulp visit [] Patient/Family/Request visit [] Outpatient visit [] Follow-up visit [] Physician referral [] Code/Alert [x] Routine visit [] Staff referral [] Actively dying [] Patient sleeping [] Family support [] [] Out of room [] Palliative care [] [x] Receiving care in room [] Pre-surgical visit [] Trauma [] Long length of stay [x] ICU visit [x] Other: therapy working with patient Relational/Emotional Strength [] Patient feels connected with others/family/visitors/staff [] Distress [] Loneliness/isolation [] Abandonment Spirituality of Patient [] Person of Sheila [] Attends Anabaptism of their Sheila [] Believes in Prayer [] Reads Bible or Scientology materials [] There are Spiritual issues to be addressed Second Time Worker Interventions [x Prayer [] Active listening [] Non-anxious presence [] Spiritual/emotional support [] Crisis/trauma care [] Spiritual counseling [] Bereavement support [] Provided bereavement packet [] Provided Bible/devotional materials [] Provided toy/stuffed animal, coloring book to patient or family member [] Provided Communion [] Anointing/[place] [] Salvation [xx] Completed spiritual assessment [] Other: Impact on Illness or Injury [] Angry [] Fearful [] Anxious [] Often cries [] Exhaustion [] Unable to work [] Unable to attend scientology [] Unable to walk/stand [] Unable to read [] Unable to drive [] Unable to eat/drink [] Unable to sleep [] Unable to be with family [] Patient intubated [] Other: Summary Time spent with patient
[2021-01-25] MEDS: nicotine 21 mg Patch 1 PATCH TRANSDERMA (12:38)
[2021-01-25] MEDS: enoxaparin 40 mg/0.4 mL Syringe SUBCUT (13:41)
[2021-01-25] MEDS: losartan 50 mg Tablet 25 MG PO (17:17)
[2021-01-25] MEDS: nicotine 2 mg Gum 4 MG BUCCAL (17:25)
--- NOTE | 2021-01-25 19:55 | PC.NURSE ---
RN found patient standing beside bed. Patient had taken off leads, BP cuff, and SPO2 monitor. RN reminded patient of need to use call light, and reinforced/reeducated crown ironer light to communicate wants and needs. RN was able to complete partial neuro exam before pt no longer would participate. Pt able to complete majority of exam without difficulty. Some right sided weakness noted wit ambulation, but no drift noted to upper or lower extremities. Patient continues to have significant difficulty with receptive speech, and is unable to read back requested sentences upon request. There also seems to be some right sided visual disturbances as well. RN helped settle pt back into bed. Explained need to keep leads and other monitoring devices on, as this was needed to evaluate patient status. Pt verbalized agreement. RN able to obtain 2 sets of VS, and then at which point RN observed patient removing monitoring devices once again. Bed low and locked, with bed alarm set. Patient sleeping at this time.
[2021-01-25] MEDS: atorvastatin 40 mg Tablet 80 MG PO (20:53)
[2021-01-26] VITALS (42 sets, daily range): BP systolic 176–222; BP diastolic 117–159; PULSE 52–87; RESP 15–19; TEMP 36.7–37.1; O2SAT 94–99
--- NOTE | 2021-01-26 06:33 | PC.NURSE ---
Shift Summary; Patient slept well throughout shift. No major reportable events. Afebrile. No reported pain. SBP fluctuated between 190's-215. Patient has been able to communicate more effectively as time has progressed. Some frustration noted at times when he has been unable to communicate wants/needs. But he is easily redirected and calmed down with explanation and encouragement to continue working towards speaking wants/needs. Pt still has significant right sided weakness with ambulation. RN spoke with patient's significant other overnight, and answered all questions. No further needs at this time. Report given to oncoming dayshift RN.
[2021-01-26] MEDS: nicotine 21 mg Patch 1 PATCH TRANSDERMA (08:56)
[2021-01-26] MEDS: aspirin 325 mg EC Tablet PO (08:56)
[2021-01-26] MEDS: pantoprazole DR 40 mg Tablet PO (08:56)
[2021-01-26] MEDS: losartan 50 mg Tablet PO (08:56)
[2021-01-26] MEDS: clopidogrel 75 mg Tablet PO (08:56)
--- NOTE | 2021-01-26 09:27 | PC.CHAP ---
Pastoral Care Encounter/Spiritual Assessment Type of Contact [] Declined plastic surgeon visit [] Patient/Family/Request visit [] Outpatient visit [] Follow-up visit [] Physician referral [] Code/Alert [x] Routine visit [] Staff referral [] Actively dying [] Patient sleeping [] Family support [] [] Out of room [] Palliative care [] [] Receiving care in room [] Pre-surgical visit [] Trauma [] Long length of stay [x] ICU visit [] Other: Relational/Emotional Strength [] Patient feels connected with others/family/visitors/staff [] Distress [] Loneliness/isolation [] Abandonment Spirituality of Patient [] Person of Sheila [] Attends Restorationism of their Sheila [] Believes in Prayer [] Reads Bible or Church materials [] There are Spiritual issues to be addressed Stabber Interventions [x] Prayer [] Active listening [] Non-anxious presence [] Spiritual/emotional support [] Crisis/trauma care [] Spiritual counseling [] Bereavement support [] Provided bereavement packet [] Provided Bible/devotional materials [] Provided toy/stuffed animal, coloring book to patient or family member [] Provided Communion [] Anointing/[place] [] Salvation [x] Completed spiritual assessment [] Other: Impact on Illness or Injury [] Angry [] Fearful [] Anxious [] Often cries [] Exhaustion [] Unable to work [] Unable to attend shinto [] Unable to walk/stand [] Unable to read [] Unable to drive [] Unable to eat/drink [] Unable to sleep [] Unable to be with family [] Patient intubated [] Other: Summary Time spent with patient
--- NOTE | 2021-01-26 09:56 | P.PN_ITS ---
Subjective Subjective: Interval history: Miguel Angel reports he feels okay. Denies any balance issues. Able to eat without any nausea or vomiting. No headache. Still having significant difficulty with his speech. Medications: Reviewed: Yes Vitals/I&O/Wt Last Vital Signs Temp 98.6 F 01/26/21 04:00 Pulse 63 01/26/21 06:00 Resp 15 01/25/21 23:15 BP 214/136 01/26/21 08:56 Pulse Ox 99 01/26/21 05:45 01/25/21 01/26/21 01/26/21 22:59 06:59 14:59 Intake Total 150 / 1390 450 / 1840 Balance 150 / 1390 450 / 1840 Weight last 48 hrs Weight 116.345 kg Weight 116.346 kg Weight 116.234 kg Weight 114.216 g Physical Exam Narrative: EXAM NARRATIVE: General exam is a white male without distress Neurologic: No abnormalities in strength. Receptive aphasia noted. Exam unchanged from yesterday HEENT: Pupils equally round. Oropharynx clear. Neck is supple no lymphadenopathy or thyromegaly Cardiovascular regular rhythm without murmur, no S3 or S4 Lungs clear Abdomen is soft with positive bowel sounds. No obvious organomegaly Extremities no cyanosis clubbing or edema Data : 01/25/21 03:04 01/25/21 03:04 A&P Assessment and plan (1) CVA (cerebral vascular accident): Left posterior parietal lobe acute infarct. Previous right cerebellar infarct. Aspirin, Plavix, statin Permissive hypertension. He has now 48 hours out and still with markedly elevated blood pressure. Losartan 50 mg p.o. daily initiated Transfer out of ICU Echocardiogram demonstrated slightly low EF 50 to 55% with some hypokinesis septally. Could consider outpatient nuclear stress test. CTA head and neck demonstrated no flow-limiting stenosis LDL 91 PT/OT/ST TSH was checked and normal. Status: Acute (2) Tobacco dependency: Counseling Status: Acute (3) Hypertension: See notations above Status: Acute Additional A&P Information History of atrial fibrillation. Secondary to acute stroke old any anticoagulation currently. He has not been on this for over 1 year. He is currently in sinus rhythm. Consider outpatient event monitor Elevated glucose, A1c was checked and normal. Full code GI prophylaxis with Protonix Lovenox for DVT prophylaxis Transfer out of ICU. Attestations Medical Necessity Statement*: Needs continued hospitalization close follow-up of CVA, as well as adjustment of medication for markedly elevated blood pressure. Coding Level of Care Code Acute Grease Remover for Chg Fwd Diagnoses CVA (cerebral vascular accident) I63.9 Tobacco dependency F17.200 Hypertension I10
[2021-01-26] MEDS: enoxaparin 40 mg/0.4 mL Syringe SUBCUT (13:06)
[2021-01-26] MEDS: nicotine 2 mg Gum 4 MG BUCCAL (13:10)
--- NOTE | 2021-01-26 16:16 | PC.NURSE ---
let nurse know about blood pressure being so high
[2021-01-26] MEDS: LORazepam 0.5 mg Tablet PO (17:55)
[2021-01-26] MEDS: amlodipine 5 mg Tablet PO (17:55)
[2021-01-26] MEDS: atorvastatin 40 mg Tablet 80 MG PO (20:12)
--- NOTE | 2021-01-26 20:26 | PC.NURSE ---
REPORTED BP TO NURSE.
[2021-01-27] VITALS (16 sets, daily range): BP systolic 146–180; BP diastolic 97–122; PULSE 54–89; RESP 16–18; TEMP 36.8–37.2; O2SAT 93–97
[2021-01-27] MEDS: aspirin 325 mg EC Tablet PO (09:22)
[2021-01-27] MEDS: clopidogrel 75 mg Tablet PO (09:22)
[2021-01-27] MEDS: pantoprazole DR 40 mg Tablet PO (09:22)
[2021-01-27] MEDS: losartan 50 mg Tablet PO ×2 (09:22→12:08)
[2021-01-27] MEDS: nicotine 21 mg Patch 1 PATCH TRANSDERMA (09:23)
[2021-01-27] MEDS: LORazepam 0.5 mg Tablet PO ×3 (09:23→20:59)
[2021-01-27] MEDS: enoxaparin 40 mg/0.4 mL Syringe SUBCUT (12:08)
--- NOTE | 2021-01-27 14:07 | P.PN_ITS ---
Subjective Subjective: Interval history: Miguel Angel still has a tremendous trouble communicating. He repetitively asks the same question, to go home. He does not seem as confused as he does have significant aphasia. Medications: Reviewed: Yes Vitals/I&O/Wt Last Vital Signs Temp 98.2 F 01/27/21 11:04 Pulse 78 01/27/21 11:04 Resp 16 01/27/21 11:04 BP 180/120 01/27/21 12:08 Pulse Ox 97 01/27/21 11:04 01/26/21 01/27/21 01/27/21 22:59 06:59 14:59 Intake Total 1000 / 1440 360 / 1800 200 / 200 Output Total 200 / 200 Balance 1000 / 1040 360 / 1400 0 / 0 Weight last 48 hrs Weight 116.345 kg Physical Exam Narrative: EXAM NARRATIVE: General exam is a white male without distress Neurologic: No abnormalities in strength. Receptive aphasia noted. Exam unchanged from yesterday. Gait is normal HEENT: Pupils equally round. Oropharynx clear. Neck is supple no lymphadenopathy or thyromegaly Cardiovascular regular rhythm without murmur, no S3 or S4 Lungs clear Abdomen is soft with positive bowel sounds. No obvious organomegaly Extremities no cyanosis clubbing or edema Data : 01/25/21 03:04 01/25/21 03:04 A&P Assessment and plan (1) CVA (cerebral vascular accident): Left posterior parietal lobe acute infarct. Previous right cerebellar infarct. Aspirin, Plavix, statin Permissive hypertension was initiated originally. Secondary to persistent markedly elevated blood pressures over 48 hours following CVA treatment has been initiated. He was previously on an [place] inhibitor which he discontinued on his own. Amlodipine has been added. Blood pressure with these adjuncts is approximately 180/120 Echocardiogram demonstrated slightly low EF 50 to 55% with some hypokinesis septally. Could consider outpatient nuclear stress test after recovery from CVA CTA head and neck demonstrated no flow-limiting stenosis LDL 91 PT/OT/ST TSH was checked and normal. Status: Acute (2) Tobacco dependency: Counseling Status: Acute (3) Hypertension: See notations above Status: Acute Additional A&P Information History of atrial fibrillation. Secondary to acute stroke old any anticoagulation currently. He has not been on this for over 1 year. He is currently in sinus rhythm. Consider outpatient event monitor Elevated glucose, A1c was checked and normal. Full code GI prophylaxis with Protonix Lovenox for DVT prophylaxis Probable discharge tomorrow Attestations Medical Necessity Statement*: Needs continued hospitalization for adjustment of blood medication for blood pressure secondary to markedly abnormal vital signs (elevated blood pressure )and close follow-up status post CVA with significant receptive aphasia. Coding Level of Care Code Acute Recreation Coordinator for Chg Fwd Diagnoses CVA (cerebral vascular accident) I63.9 Tobacco dependency F17.200 Hypertension I10
[2021-01-27] MEDS: atorvastatin 40 mg Tablet 80 MG PO (20:46)
[2021-01-27] MEDS: hyDRALAzine 25 mg Tablet 12.5 MG PO (20:48)
[2021-01-28] VITALS: BP 162/100; PULSE 76; RESP 18; TEMP 36.9; O2SAT 95
[2021-01-28 04:00] VITALS: BP 150/102; PULSE 71; RESP 20; TEMP 36.9; O2SAT 94
[2021-01-28 07:56] VITALS: BP 169/133; PULSE 78; RESP 20; TEMP 37; O2SAT 95
[2021-01-28 08:39] VITALS: BP 169/133
[2021-01-28] MEDS: amlodipine 5 mg Tablet 10 MG PO (08:39)
[2021-01-28] MEDS: aspirin 325 mg EC Tablet PO (08:39)
[2021-01-28] MEDS: hyDRALAzine 25 mg Tablet 12.5 MG PO (08:39)
[2021-01-28] MEDS: losartan 50 mg Tablet 100 MG PO (08:39)
[2021-01-28] MEDS: nicotine 21 mg Patch 1 PATCH TRANSDERMA (08:40)
[2021-01-28] MEDS: pantoprazole DR 40 mg Tablet PO (08:40)
[2021-01-28] MEDS: clopidogrel 75 mg Tablet PO (08:40)
[2021-01-28 09:34] VITALS: BP 159/110
--- NOTE | 2021-01-28 09:50 | PM.DCS ---
Discharge Providers Date of Admission: 01/24/21 10:01 Date of Discharge: January 28, 2021 Attending Provider at Admission: Moustapha Braden MD Attending Provider at Discharge: Moustapha Braden MD Primary Care Provider: YOUSUF Vázquez Diagnoses at Discharge Discharge Diagnosis (1) CVA (cerebral vascular accident): Status: Acute Permanent problem details: Prior history of cerebellar CVA 2017 (2) Tobacco dependency: Status: Acute (3) Hypertension: Status: Acute Reason for Visit Reason for Visit: STROKE SYMPTOMS Hospital Course Hospital Course Mr. Hunt is a 45-year-old white male who presented to the hospital with difficulty with his speech. He was identified as having a CVA, noted left posterior parietal lobe. Blood pressure was markedly elevated. Patient has a significant history of markedly elevated blood pressures in the past as well as cerebellar CVA in the past. He also had a history of atrial fibrillation. Sinus rhythm was noted on admission. He was not a candidate for TPA. CTA demonstrated no flow-limiting disease. EKG demonstrated sinus rhythm. He was initially placed in the ICU and monitored closely. Permissive hypertension was allowed. After 48 hours blood pressure was still markedly elevated with diastolic blood pressure greater than 120. Addition of blood pressure medication occurred while in the hospital, after the initial 48 hours, and by time of discharge diastolic blood pressure was 110 on treatment. At that time patient was feeling better. He was able to ambulate the halls without difficulty. Some receptive as well as expressive aphasia was still noted and patient could definitely benefit from outpatient speech therapy. He will follow-up with neurology in 2 weeks. Event monitor will be placed. He will follow-up with cardiology as well secondary to his marked hypertension and history of atrial fibrillation. He will be discharged on Plavix aspirin and statin. Echocardiogram was performed while inpatient in the hospital and he had a EF of 50 to 55% with relative hypokinesis of the septum. I think this is likely from his longstanding hypertension but well allow cardiology to address on follow-up. Patient had no complaints of chest discomfort during his hospital stay. Physical Exam Narrative: EXAM NARRATIVE: General exam no apparent distress Cardiovascular regular rate and rhythm without murmur Lungs clear Abdomen is soft with positive bowel sounds Extremities no cyanosis clubbing or edema. Neurologic: Good strength all extremities. Some slight neglect right upper extremity and a slight right hand drift which has extinction with repeated effort. Gait is normal. Receptive and expressive aphasia noted. Discharge Data Data Completed and Pending: Completed Studies During Hospitalization Category Date Time Status CT angio headneck * [id number] Stat Cat Scan 01/24/21 09:[address] head wo con* [id number] Stat Cat Scan 01/24/21 07:40 Completed XR chest 1V jaye ble [id number] Routine Exams 01/24/21 11:38 Completed CV echo complete* [id number] Routine Ultrasound 01/24/21 11:38 Completed Vitals: Last Vital Signs Temp 98.6 F 01/28/21 07:56 Pulse 78 01/28/21 07:56 Resp 20 H 01/28/21 07:56 BP 159/110 01/28/21 09:34 Pulse Ox 95 01/28/21 07:56 Discharge Plan Discharge Patient Disposition: Home Condition: Stable Prescriptions: New aspirin 325 mg Tablet,Delayed Release (Dr/Ec) 325 mg PO DAILY Qty: 30 RF: 0 atorvastatin 40 mg Tablet 80 mg PO BEDTIME Qty: 60 RF: 0 clopidogrel 75 mg Tablet 75 mg PO DAILY Qty: 30 RF: 0 amlodipine 5 mg Tablet 10 mg PO DAILY Qty: 30 RF: 0 losartan 50 mg Tablet 100 mg PO DAILY Qty: 30 RF: 0 hydralazine 25 mg Tablet 12.5 mg PO TID Qty: 45 RF: 0 No Action No Known Home Medications RF: 0 Discharge Orders: Discharge Order (Routine); Ordered 01/28/21 Ordered By: Moustapha Braden Other Ambulatory Orders: CA cardiac event monitor (Routine) Timeframe: 1 Day Facility: [facility] - Location: Cardiac Diagnostic Laboratory Ordered By: Moustapha Braden Occupational Therapy Eval and Treat Outpatient (Order) Timeframe: 3 Days Facility: [facility] - Location: Occupational Therapy Ordered By: Moustapha Braden Speech Language Pathology Eval and Treat Outpatient (Order) Timeframe: 3 Days Facility: [facility] - Location: Speech Therapy [place] Ordered By: Moustapha Braden Referrals: Occupational Therapy/Rehab [Provider Group] - 1-3 days (Please call [phone] once approved for financial assistance to get on schedule or they will call you.) SPEECH THERAPY [Provider Group] - 1-3 days (Therapy Department will be calling you to schedule your outpatient appointment. If you have questions or dont hear from them, please call [phone].) Sharonda Mason MD [Physician] - 2 weeks (Follow-up after CVA) REN Dan FNP [Primary Care Provider] - 4-7 days (Follow-up following CVA) Aleksandr Holguin M.D [Physician] - 2 weeks (Markedly elevated blood pressure, history of atrial fibrillation) Discharge Diet: Cardiac Discharge Activity: Increase activity as tolerated Patient Instructions: Self Care Measures After a Stroke (DC) Activity Restrictions/Additional Instructions: No smoking. Take all medicine as prescribed Follow-up with neurology 2 weeks, primary care provider 3 to 5 days Discharge Attestations Time Spent in Discharge Care*: greater than 30 min Quality Metrics Clinical Quality Measures During this hospital stay, did patient experience: Stroke Contraindication to Antithrombotic: Antithrombotic prescribed Contraindication to Anticoagulation: Other (not indicated currently) Contraindication to Statin: Statin prescribed Coding Level of Care Code Acute Chg FW DC note Diagnoses CVA (cerebral vascular accident) I63.9 Tobacco dependency F17.200 Hypertension I10
--- NOTE | 2021-01-28 11:07 | PC.NURSE ---
Discharge instructions reviewed with patient and patients spouse, denies further questions or concerns.
[2021-01-28 11:08] VITALS: BP 159/110; PULSE 78; RESP 20; TEMP 37; O2SAT 95
== END 2021-01-28 11:12 | disposition home or self-care (01) | DRG 66 ==
LOC: ER 07:20 → ICU 10:47 → MEDSURG 01-26 11:01
PROVIDERS: Admitting Provider Internal Medicine; Emergency Provider Family Medicine; PCP Nurse Practitioner Family; Visit Provider Internal Medicine
DX: I63.9 Cerebral infarction, unspecified (principal); R47.01 Aphasia; R29.702 NIHSS score 2; I48.91 Unspecified atrial fibrillation; Z86.73 Personal history of transient ischemic attack (TIA), and cerebral infarction without residual deficits; I10 Essential (primary) hypertension; Z87.442 Personal history of urinary calculi; F17.210 Nicotine dependence, cigarettes, uncomplicated; F12.90 Cannabis use, unspecified, uncomplicated
CPT/HCPCS: 36415; 36416; 70450; 70496; 70498; 71045; 80048; 80053; 80061; 80306; 81001; 82962; 83036; 83735; 84443; 84484; 85025; 85610; 85730; 92507; 92523; 92610; 93005; 93306; 96372; 96374; 97110; 97116; 97161; 99285; J1650; J2270; J2405; J7030; Q9967

== ENCOUNTER → 2021-02-01 08:01 | Outpatient (BNVA) | payer MEDICAID, SELFPAY | PROVIDERS: PCP Nurse Practitioner Family; Referring Provider Family Medicine; Visit Provider Specialist | DX: I69.320 Aphasia following cerebral infarction (principal); I10 Essential (primary) hypertension; R00.2 Palpitations; F17.210 Nicotine dependence, cigarettes, uncomplicated | CPT/HCPCS: 99205 ==

== ENCOUNTER 2021-02-02 10:14 | Outpatient (RCR) | payer MEDICAID, SELFPAY | END 2021-02-02 23:59 | disposition home or self-care (01) | LOC: SOS 10:14 | PROVIDERS: PCP Nurse Practitioner; Referring Provider Internal Medicine; Visit Provider Internal Medicine | DX: I63.9 Cerebral infarction, unspecified (principal) | CPT/HCPCS: 96105 ==

== ENCOUNTER 2021-02-03 06:00 | Outpatient (RCR) | payer MEDICAID, SELFPAY | END 2021-03-04 23:59 | disposition home or self-care (01) | LOC: SOS 06:00 | PROVIDERS: PCP Nurse Practitioner; Referring Provider Internal Medicine; Visit Provider Internal Medicine | DX: I63.9 Cerebral infarction, unspecified (principal) | CPT/HCPCS: 92507; 97112; 97167; 97530 ==

== ENCOUNTER 2021-02-04 15:41 | Emergency (ER) | payer MEDICAID, SELFPAY ==
[2021-02-04 15:50] VITALS: BP 100/69; PULSE 64; RESP 18; O2SAT 96; BMI 32.5
--- NOTE | 2021-02-04 15:51 | XRR_ITS ---
PROCEDURE INFORMATION: Exam: XR Chest Exam date and time: 02/04/2021 4:10 PM Age: 45 years old Clinical indication: Other: Reduced breath sounds TECHNIQUE: Imaging protocol: XR of the chest Views: 1 view. Total images: 1 COMPARISON: CR XR chest 1V portable [id number] 01/24/2021 11:46 AM FINDINGS: Lungs: No visible active interstitial or alveolar airspace disease. Pleural spaces: Unremarkable. No pleural effusion. No pneumothorax. Heart/Mediastinum: Cardiac structures and configuration with mild cardiomegaly stable. Bones/joints: Unremarkable. XR/XR chest 1V portable [id number] IMPRESSION: Nonacute.
--- NOTE | 2021-02-04 15:51 | CTR_ITS ---
PROCEDURE INFORMATION: Exam: CT Angiography Head With Contrast Exam date and time: 02/04/2021 3:54 PM Age: 45 years old Clinical indication: Syncope and collapse and weakness; Patient HX: Weakness, hypotensive, syncopal; Additional info: Weakness. H/o CVA TECHNIQUE: Imaging protocol: Computed tomography angiography of the head with intravenous contrast. 3D rendering (Not supervised by radiologist): MIP and/or 3D reconstructed images were created by the technologist. Total images: 809 Radiation optimization: All CT scans at this facility use at least one of these dose optimization techniques: automated exposure control; mA and/or kV adjustment per patient size (includes targeted exams where dose is matched to clinical indication); or iterative reconstruction. Contrast material: OMNI 350; Contrast volume: 95 ml; Contrast route: INTRAVENOUS (IV); COMPARISON: CT angio headneck* [id number] 01/24/2021 11:02 AM RADIATION DOSE METRICS: Total DLP (mGy-cm): 4547.79 FINDINGS: ANTERIOR CIRCULATION: Right internal carotid artery: Unremarkable. Intracranial segment is patent with no significant stenosis. No aneurysm. Right middle cerebral artery: Unremarkable. No occlusion or significant stenosis. No aneurysm. Right anterior cerebral artery: Unremarkable. No occlusion or significant stenosis. No aneurysm. Left internal carotid artery: Unremarkable. Intracranial segment is patent with no significant stenosis. No aneurysm. Left middle cerebral artery: Evidence of diminished flow of the left middle cerebral artery M2 and M3 segments. The left M1 segment remains patent. Diminished flow to the M1, and 4, and 5, and M 6 regions of the left cerebral hemisphere compared to the contralateral right. Left anterior cerebral artery: Unremarkable. No occlusion or significant stenosis. No aneurysm. POSTERIOR CIRCULATION: Right vertebral artery: Unremarkable. No occlusion or significant stenosis. No aneurysm. Left vertebral artery: Unremarkable. No occlusion or significant stenosis. No aneurysm. Basilar artery: Unremarkable. No occlusion or significant stenosis. No aneurysm. Right posterior cerebral artery: Unremarkable. No occlusion or significant stenosis. No aneurysm. Left posterior cerebral artery: Unremarkable. No occlusion or significant stenosis. No aneurysm. IMPRESSION: Evidence of diminished flow of the left middle cerebral artery M2 and M3 segments. The left M1 segment remains patent. Diminished flow to the M1, and 4, and 5, and M 6 regions of the left cerebral hemisphere compared to the contralateral right. PROCEDURE INFORMATION: Exam: CT Angiography Neck With Contrast Exam date and time: 02/04/2021 3:54 PM Age: 45 years old Clinical indication: Syncope and collapse and weakness; Patient HX: Weakness, hypotensive, syncopal; Additional info: Weakness. H/o CVA TECHNIQUE: Imaging protocol: Computed tomography angiography of the neck with intravenous contrast. 3D rendering (Not supervised by radiologist): MIP and/or 3D reconstructed images were created by the technologist. Radiation optimization: All CT scans at this facility use at least one of these dose optimization techniques: automated exposure control; mA and/or kV adjustment per patient size (includes targeted exams where dose is matched to clinical indication); or iterative reconstruction. Contrast material: OMNI 350; Contrast volume: 95 ml; Contrast route: INTRAVENOUS (IV); COMPARISON: CT angio headneck* [id number] 01/24/2021 11:02 AM RADIATION DOSE METRICS: Total DLP (mGy-cm): 4547.79 FINDINGS: Right common carotid artery: No stenosis. No dissection or occlusion. Right internal carotid artery: No stenosis of the extracranial segment. No dissection or occlusion. Right external carotid artery: No occlusion or stenosis of the origin. Right vertebral artery: No stenosis. No dissection or occlusion. Left common carotid artery: No stenosis. No dissection or occlusion. Left internal carotid artery: No stenosis of the extracranial segment. No dissection or occlusion. Left external carotid artery: No occlusion or stenosis of the origin. Left vertebral artery: No stenosis. No dissection or occlusion. Bones/joints: No visible active or acute osseous pathology. Mild degenerative disease. Soft tissues: Unremarkable. No significant soft tissue swelling. CT/CT angio headneck* [id number] IMPRESSION: No hemodynamically significant stenosis or occlusion. REFERENCES: NASCET CRITERIA. The degree of internal carotid artery stenosis is based on NASCET criteria. Normal is no stenosis. Mild is less than 50% stenosis. Moderate is 50-69% stenosis. Severe is 70% to 99% stenosis. Total occlusion is no detectable patent lumen. Radiation Dose CTDIVOL = (mGy): DLP = 4547.79~4547.79 (mGy-cm)
--- NOTE | 2021-02-04 15:51 | CTR_ITS ---
PROCEDURE INFORMATION: Exam: CT Head Without Contrast Exam date and time: 02/04/2021 3:54 PM Age: 45 years old Clinical indication: Syncope and collapse; Additional info: Symptoms of acute stroke TECHNIQUE: Imaging protocol: Computed tomography of the head without contrast. Total images: 212 Radiation optimization: All CT scans at this facility use at least one of these dose optimization techniques: automated exposure control; mA and/or kV adjustment per patient size (includes targeted exams where dose is matched to clinical indication); or iterative reconstruction. Other technique: STROKE PROTOCOL was implemented. COMPARISON: CT head wo con* [id number] 01/24/2021 8:14 AM RADIATION DOSE METRICS: Total DLP (mGy-cm): 981.53 FINDINGS: Brain: Findings raising concern for acute to early subacute left MCA territory infarctions involving the left frontal lobe operculum, and left parietal lobe. Area of involvement would include M1, M4, and M5, and M6. No visible associated cranial hemorrhage. No visible significant generalized edema or mass effect. No midline shift. There appears to be extension of the posterior left parietal infarct demonstrated on the study of 01/24/2021. Again note of the old right cerebellar infarction with focal atrophy, encephalomalacia, gliosis, and porencephaly. Old lacunar infarction anterior limb left internal capsule stable. No visible hyperdense MCA or insular ribbon sign, however. No definite basal ganglia involvement visible this evaluation. Cerebral ventricles: No ventriculomegaly. Bones/joints: Unremarkable. No acute fracture. Paranasal sinuses: Visualized sinuses are unremarkable. No fluid levels. Mastoid air cells: Visualized mastoid air cells are well aerated. Soft tissues: Unremarkable. CT/CT head wo con* [id number] IMPRESSION: 1. Findings raising concern for acute to early subacute left MCA territory infarctions as detailed in text above. 2. No visible associated intracranial hemorrhage. 3. No visible associated significant cerebral edema or mass effect. 4. Antecedent infarctions as detailed in text above. ASSESSMENT: ASPECTS (Edwige Stroke Program Early CT Score) is 6 Radiation Dose CTDIVOL = (mGy): DLP = 981.53 (mGy-cm)
[2021-02-04 15:53] LABS: Glucose Point of Care 146 mg/dL (70-110)
--- NOTE | 2021-02-04 15:59 | ECG_ITS ---
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 Measurements Intervals [place] Rate: 70 P: 37 OK: 169 QRS: -6 QRSD: 107 T: -30 QT: 425 QTc: 459 Interpretive Statements SINUS RHYTHM MODERATE VOLTAGE CRITERIA FOR LVH, CONSIDER NORMAL VARIANT [MEETS CRITERIA IN ONE OF: R(aVL), S(V1), R(V5), R(V5/V6)+S(V1)] NONSPECIFIC T-WAVE ABNORMALITY Compared to ECG 01/24/2021 14:30:39 T-wave abnormality now present Ventricular premature complex(es) no longer present Myocardial infarct finding no longer present Electronically Signed On 02-04-2021 18:29:39 CDT by Aleksandr Holguin M.D. [id number]
[2021-02-04] MEDS: iohexol 350 mg/mL 100 mL Btl IV (16:04)
[2021-02-04] MEDS: sodium chloride 0.9% 1,000 ML 999 ML IV (16:20)
[2021-02-04 16:30] VITALS: BP 132/78; PULSE 70; O2SAT 98
[2021-02-04 16:36] LABS: Basophils # 0.1 10^3/uL (0.0-0.1); Basophils % 0.5 %; Eosinophils # 0.1 10^3/uL (0.0-0.8); Eosinophils % 0.5 %; Hematocrit 48.1 % (42.0-52.0); Hemoglobin 15.7 g/dL (11.7-16.6); Lymphocytes # 1.7 10^3/uL (0.8-4.8); Lymphocytes % 13.4 %; Mean Corpuscular HGB Conc 32.6 g/dL (30.0-36.0); Mean Corpuscular Hemoglobin 28.8 pg (28.0-34.0); Mean Corpuscular Volume 88.1 fL (80-94); Mean Platelet Volume 11.4 fL (7.4-10.4); Monocytes # 1.3 10^3/uL (0.2-0.9); Monocytes % 10.3 %; Neutrophils # 9.44 10^3/uL (1.8-7.7); Neutrophils % 74.7 %; Nucleated Red Blood Cells % 0 %; Platelet Count 285 10^3/cmm (130-400); Red Blood Count 5.46 10^6/uL (4.1-5.3); Red Cell Distribution Width 12.4 % (12.1-15.1); White Blood Count 12.6 10^3/uL (4.0-10.0)
[2021-02-04 16:47] LABS: INR 1.12 (0.8-1.2); Partial Thromboplastin Time 24.5 SECONDS (23.9-36.7)
[2021-02-04 16:58] LABS: Alanine Aminotransferase 31 U/L (0-41); Albumin Level 3.7 g/dL (3.5-5.2); Alcohol Level < 10 mg/dL (0-10); Alkaline Phosphatase 106 IU/L (40-130); Anion Gap 17.4 (5-19); Aspartate Amino Transferase 15 U/L (0-40); Blood Urea Nitrogen 28 mg/dL (6-20); Calcium 8.3 mg/dL (8.5-10.5); Carbon Dioxide 23 mmol/L (22-29); Chloride 96 mmol/L (98-107); Creatinine Clr Calc Pharmacy 60.6956; Globulin 2.9 g/dL (1.3-4.6); Glomerular Filtration Rate 36.6 mL/min (90-130); Glucose 132 mg/dL (65-115); Osmolality Calculated 281 mOsm/kg (285-295); Potassium 4.4 mmol/L (3.5-5.1); Sodium 132 mmol/L (136-145); Total Bilirubin 0.6 mg/dL (0.15-1.2); Total Protein 6.6 g/dL (6.6-8.7)
[2021-02-04 17:00] VITALS: BP 128/85; PULSE 76; O2SAT 99
[2021-02-04 17:02] LABS: Troponin(5th) Baseline 17 ng/L (0-15)
[2021-02-04 17:30] VITALS: BP 127/83; PULSE 72; O2SAT 98
--- NOTE | 2021-02-04 17:54 | W.ED.NEUROSD ---
HPI - Neuro Symptoms/Deficit General: Chief Complaint: Neuro Symptoms/Deficit Stated Complaint: syncope, possible neuro symptoms Time Seen by Provider: 02/04/21 15:51 History of Present Illness: HPI Narrative: Is a 45-year-old male with past medical history stroke on January 24, 2021which was a left MCA distribution. 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 Also he is a heavy smoker and has hypertension. From the recent stroke he has loss of ability to speak, taste and right-sided facial droop and right-sided arm weakness. He has been able to get around since discharge well. Today he was going to a baseball game with his significant other who noted he started feeling weak and passed out. They drove 30 minutes to the ER here at [facility] and she said she was struggling to keep him awake. His symptoms started at 3 PM. His NIH on arrival was 9 although most of his symptoms appear to be chronic other than the sleepiness. His blood pressure was slightly low on arrival 100/69 with a pulse of 64 and a stroke alert was called. He was evaluated by Nadja who recommended no acute interventions. Head CT did show a progressing left MCA stroke. He was given a liter of fluids and his blood pressure and mental status did improve moderately. Time: 03:00 Timing confirmed by: spouse Location: speech, right face and right arm History of same: Yes Severity: severe Quality: weak Relieving factors: none Exacerbating factors: none Context: sudden onset Associated symptoms: Reports no associated symptoms; Deny chest pain or headache(s) Treatments Prior to Arrival: Aspirin (Aspirin 325 this morning) Review of Systems General: Reports: 10 or more systems reviewed and unremarkable except in HPI and below Narrative: He is able to answer no to most all of the review of systems except for his chronic right-sided weakness and increased sleepiness. Const: Denies: fatigue Eyes: Denies: change in vision, blurry vision or eye redness ENMT: Denies: throat pain, swelling of lips/tongue, ear or mastoid pain or nasal congestion Card: Denies: chest pain, palpitations, irregular heart rhythm, edema, dyspnea on exertion or orthopnea Resp: Denies: dyspnea, productive cough or non-productive cough GI: Denies: abdominal pain, diarrhea or GI cramping : Denies: flank pain, urinary frequency or urinary urgency Musc: Denies: neck pain, back pain, extremity pain, joint pain, joint redness, limited range of motion or muscle weakness Skin/Breast: Denies: rash, pruritus, erythema, skin pain or skin tenderness Neuro: Reports: weakness in extremities; Denies: headache(s), numbness in extremities, sensory changes, difficulty walking, dizziness, confusion or Slurred speech present Psych: Denies: anxiety or depression Endo: Denies: polyuria All/Imm: Denies: urticaria, throat swelling or tongue swelling PFSH ED PFSH: Medical History Atrial fibrillation CVA (cerebral vascular accident) Prior history of cerebellar CVA 2017 Hypertension Nephrolithiasis Surgical History H/O hand surgery History of cholecystectomy Family History Other Diabetes Heart disease Hypertension Stroke Social History Smoking and tobacco status: current every day smoker cigarettes Packs smoked per day: 1.5 Second hand smoke exposure: No Smoking risk assessment/counseling performed?: Yes Alcohol intake: never Desire information about alcohol rehabilitation?: No Counseling given: No Desire information about substance/drug rehabilitation?: No Counseling given: No Adopted: No Caregiver/support person: No Lives independently: Yes Household members: significant other Housing: House Marital status: Single Number of children: 4 service: No Current occupational status: employed Current occupation: [employer] History of recent travel: No Current gender identity: Male Physical Exam Const: COMMON NORMALS: average body habitus, no limitations and well nourished GENERAL APPEARANCE: cooperative, comfortable and well developed ORIENTATION/CONSCIOUSNESS: Yes oriented to person, Yes oriented to place, Yes oriented to time and Yes confused OTHER: Somnolent on arrival. Hypotensive on arrival. But he is able to wake with questions and answers them appropriately shaking his head yes and no. He has no ability to speak from a previous stroke. HENMT: COMMON NORMALS: normocephalic, external ears normal and Normal external nose present HEAD & SCALP: normal to inspection and normocephalic NOSE: Normal external nose present EXTERNAL EAR: Yes external ears normal MOUTH: Normal oral and palatal mucosa present THROAT: posterior oropharynx normal Eye: COMMON NORMALS: Equal, round and reactive pupils present and EOMs intact bilaterally GENERAL EYE: appearance normal, both eyes and all related structures PUPIL: Yes Equal, round and reactive pupils present Neck/C-Spine: COMMON NORMALS: full ROM, no lymphadenopathy, no meningeal signs and no JVD GENERAL: Yes normal visual inspection Lymph: LYMPHATIC: no lymphadenopathy noted Chest: COMMONS NORMALS: normal inspection of the chest and normal palpation of entire chest wall Resp: COMMON NORMALS: normal respiratory effort, No retractions, No use of accessory muscles, clear to auscultation bilaterally and percussion normal EFFORT & INSPECTION: Yes able to speak in complete sentences AUSCULTATION: clear to auscultation bilaterally PERCUSSION: percussion normal Cardio: COMMON NORMALS: no JVD, regular rate, regular rhythm, S1 normal heart sound present, S2 normal heart sound present and Peripheral pulses 2+ throughout RATE: regular rate RHYTHM: regular rhythm HEART SOUNDS: S1 normal heart sound present and S2 normal heart sound present PERIPHERAL PULSES: Peripheral pulses 2+ throughout GI: COMMON NORMALS: Normal to inspection, nondistended, normoactive bowel sounds present, Soft to palpation, non-tender and no masses INSPECTION: Yes normal to inspection PALPATION: Yes Soft to palpation : COMMON NORMALS: Yes no CVA tenderness BLADDER/KIDNEY EXAM: Yes no CVA tenderness Back/Pelvis: COMMON NORMALS: no CVA tenderness, thoracic and lumbar spine normal to inspection, no thoracic nor lumbar tenderness and thoraco-lumbar ROM normal Extremity: COMMON NORMALS: normal to inspection, full ROM, capillary refill normal, no joint enlargement and no pedal edema GENERAL: Yes normal exam except as noted Neuro: COMMON NORMALS: CN's II-XII intact bilaterally, moves all extremities, no sensory deficits noted and gait normal SENSORIUM/ORIENTATION: Yes oriented to person, Yes oriented to place, Yes oriented to time and Yes somnolent MENINGEAL SIGNS: Yes no meningeal signs SPEECH: abnormal speech and expressive aphasia GAIT: Yes Unable to assess gait OTHER: Chronic right upper extremity weakness with power 4 out of 5. Chronic right facial droop. Chronic aphasia and dysarthria. Sensation intact Psych: COMMON NORMALS: mental status grossly normal, Normal thought process present, cooperative, normal affect and speech normal ATTITUDE: Yes calm SPEECH: Yes normal speech THOUGHT PROCESS: Normal thought process present Skin: COMMON NORMALS: no rashes or lesions noted GENERAL SKIN EXAM: no rashes or lesions noted Course Vital Signs: Vital signs: Vital Signs Pulse Rate 64 02/04/21 15:50 Respiratory Rate 18 02/04/21 15:50 Blood Pressure 100/69 02/04/21 15:50 Pulse Oximetry 96 02/04/21 15:50 MDM - Neuro Symptoms/Deficit MDM Narrative: Medical decision making narrative: On arrival it was unclear if he was having syncope or if this is a new onset stroke. Stroke alert was called and I discussed with Dr. Olmedo who agrees he is not a candidate for TPA because of his recent stroke. Also recommends no acute interventions other than his fluids which are already being given. CT does show progression of the MCA territory stroke acute and subacute. Discussed with Dr. Melendez neurology at [facility] who accepts to the floor there. He will be flown based on his progressing acute CVA, drowsiness, and potential to decompensate during transport. Lab Data: Labs: Lab Results 02/04/21 02/04/21 02/04/21 Range/Units 15:48 16:28 16:28 WBC 12.6 H (4.0-10.0) 10^3/ uL RBC 5.46 H (4.1-5.3) 10^6/u L Hgb 15.7 (11.7-16.6) g/dL Hct 48.1 (42.0-52.0) % MCV 88.1 (80-94) fL MCH 28.8 (28.0-34.0) pg MCHC 32.6 (30.0-36.0) g/dL RDW 12.4 (12.1-15.1) % Plt Count 285 (130-400) 10^3/c mm MPV 11.4 H (7.4-10.4) fL Neut % (Auto) 74.7 % Lymph % (Auto) 13.4 % [place] % (Auto) 10.3 % Eos % (Auto) 0.5 % Baso % (Auto) 0.5 % Neut # (Auto) 9.44 H (1.8-7.7) 10^3/u L Lymph # (Auto) 1.7 (0.8-4.8) 10^3/u L [place] # (Auto) 1.3 H (0.2-0.9) 10^3/u L Eos # (Auto) 0.1 (0.0-0.8) 10^3/u L Baso # (Auto) 0.1 (0.0-0.1) 10^3/u L Nucleated RBC % (a uto) 0 % Nucleated RBCs # 0.0 /100WBC PT 14.80 (12.1-14.9) SECO NDS INR 1.12 (0.8-1.2) APTT 24.5 (23.9-36.7) SECO NDS Sodium (136-145) mmol/L Potassium (3.5-5.1) mmol/L Chloride (98-107) mmol/L Carbon Dioxide (22-29) mmol/L Anion Gap (5-19) BUN (6-20) mg/dL Creatinine (0.7-1.2) mg/dL GFR Calculation (90-130) mL/min Glucose (65-115) mg/dL POC Glucose 146 H (70-110) mg/dL Calculated Osmolal ity (285-295) mOsm/k g Calcium (8.5-10.5) mg/dL Total Bilirubin (0.15-1.2) mg/dL AST (0-40) U/L ALT (0-41) U/L Alkaline Phosphata se (40-130) IU/L Troponin T Baselin e (0-15) ng/L Total Protein (6.6-8.7) g/dL Albumin (3.5-5.2) g/dL Globulin (1.3-4.6) g/dL Ethyl Alcohol (0-10) mg/dL 02/04/21 02/04/21 Range/Units 16:28 16:28 WBC (4.0-10.0) 10^3/ uL RBC (4.1-5.3) 10^6/u L Hgb (11.7-16.6) g/dL Hct (42.0-52.0) % MCV (80-94) fL MCH (28.0-34.0) pg MCHC (30.0-36.0) g/dL RDW (12.1-15.1) % Plt Count (130-400) 10^3/c mm MPV (7.4-10.4) fL Neut % (Auto) % Lymph % (Auto) % [place] % (Auto) % Eos % (Auto) % Baso % (Auto) % Neut # (Auto) (1.8-7.7) 10^3/u L Lymph # (Auto) (0.8-4.8) 10^3/u L [place] # (Auto) (0.2-0.9) 10^3/u L Eos # (Auto) (0.0-0.8) 10^3/u L Baso # (Auto) (0.0-0.1) 10^3/u L Nucleated RBC % (a uto) % Nucleated RBCs # /100WBC PT (12.1-14.9) SECO NDS INR (0.8-1.2) APTT (23.9-36.7) SECO NDS Sodium 132 L (136-145) mmol/L Potassium 4.4 (3.5-5.1) mmol/L Chloride 96 L (98-107) mmol/L Carbon Dioxide 23 (22-29) mmol/L Anion Gap 17.4 (5-19) BUN 28 H (6-20) mg/dL Creatinine 2.0 H (0.7-1.2) mg/dL GFR Calculation 36.6 L (90-130) mL/min Glucose 132 H (65-115) mg/dL POC Glucose (70-110) mg/dL Calculated Osmolal ity 281 L (285-295) mOsm/k g Calcium 8.3 L (8.5-10.5) mg/dL Total Bilirubin 0.6 (0.15-1.2) mg/dL AST 15 (0-40) U/L ALT 31 (0-41) U/L Alkaline Phosphata se 106 (40-130) IU/L Troponin T Baselin e 17 H (0-15) ng/L Total Protein 6.6 (6.6-8.7) g/dL Albumin 3.7 (3.5-5.2) g/dL Globulin 2.9 (1.3-4.6) g/dL Ethyl Alcohol < 10 (0-10) mg/dL Critical Care Time Critical Care Time: Critical Care Time: Yes Total Critical Care Time: 60 Attestation: Evaluation and treatment of acute CVA. Consultation with multiple specialists and arranging transport to higher level of care. Discharge Plan Discharge Patient Disposition: Xfer Short-Term Hosp Clinical Impression: Cerebrovascular accident, Syncope Condition: Stable Referrals: Boo Roach FNP-C [Primary Care Provider] - Coding Level of Care Code ED Tick Inspector for Rand Presley
[2021-02-04 18:00] VITALS: BP 132/92; PULSE 79; O2SAT 98
== END 2021-02-04 18:50 | disposition short-term general hospital (02) ==
PROVIDERS: Emergency Provider Family Medicine; PCP Nurse Practitioner
DX: I63.9 Cerebral infarction, unspecified (principal); R55 Syncope and collapse; I48.91 Unspecified atrial fibrillation; Z86.73 Personal history of transient ischemic attack (TIA), and cerebral infarction without residual deficits; I10 Essential (primary) hypertension; F17.210 Nicotine dependence, cigarettes, uncomplicated
CPT/HCPCS: 36415; 36416; 70450; 70496; 70498; 71045; 80053; 80307; 82962; 84484; 85025; 85610; 85730; 93005; 96360; 99291; J7030; Q9967

== ENCOUNTER → 2021-02-10 11:02 | Outpatient (BNVA) | payer MEDICAID, SELFPAY | PROVIDERS: PCP Nurse Practitioner; Visit Provider Nurse Practitioner | DX: I10 Essential (primary) hypertension (principal); I63.9 Cerebral infarction, unspecified | CPT/HCPCS: 80048 ==

== ENCOUNTER 2021-03-05 06:00 | Outpatient (RCR) | payer SELFPAY | END 2021-04-04 23:59 | disposition home or self-care (01) | LOC: SOS 06:00 | PROVIDERS: PCP Nurse Practitioner; Referring Provider Internal Medicine; Visit Provider Internal Medicine | DX: I69.30 Unspecified sequelae of cerebral infarction (principal) | CPT/HCPCS: 92507 ==

== ENCOUNTER 2021-04-05 06:00 | Outpatient (RCR) | payer MEDICAID, SELFPAY | END 2021-05-04 23:59 | disposition home or self-care (01) | LOC: SOS 06:00 | PROVIDERS: PCP Nurse Practitioner; Referring Provider Internal Medicine; Visit Provider Internal Medicine | DX: I63.9 Cerebral infarction, unspecified (principal) | CPT/HCPCS: 92507 ==

== ENCOUNTER 2021-05-05 06:00 | Outpatient (RCR) | payer SELFPAY | END 2021-06-04 23:59 | disposition home or self-care (01) | LOC: SOS 06:00 | PROVIDERS: PCP Nurse Practitioner; Referring Provider Internal Medicine; Visit Provider Internal Medicine | DX: I69.320 Aphasia following cerebral infarction (principal) | CPT/HCPCS: 92507 ==

== ENCOUNTER 2021-06-24 16:21 | Outpatient (RCR) | payer MEDICAID, SELFPAY | END 2021-07-05 23:59 | disposition home or self-care (01) | LOC: SOS 16:21 | PROVIDERS: PCP Nurse Practitioner; Referring Provider Internal Medicine; Visit Provider Internal Medicine | DX: I63.9 Cerebral infarction, unspecified (principal); I69.320 Aphasia following cerebral infarction | CPT/HCPCS: 92507 ==

== ENCOUNTER → 2021-07-05 12:39 | Outpatient (BNVA) | payer MEDICAID, SELFPAY | PROVIDERS: PCP Nurse Practitioner; Visit Provider Specialist | DX: I69.320 Aphasia following cerebral infarction (principal); I10 Essential (primary) hypertension; F17.210 Nicotine dependence, cigarettes, uncomplicated | CPT/HCPCS: 99214 ==

== ENCOUNTER 2021-07-06 06:00 | Outpatient (RCR) | payer MEDICAID, SELFPAY | END 2021-08-04 23:59 | disposition home or self-care (01) | LOC: SOS 06:00 | PROVIDERS: PCP Nurse Practitioner; Referring Provider Internal Medicine; Visit Provider Internal Medicine | DX: I63.9 Cerebral infarction, unspecified (principal); I69.320 Aphasia following cerebral infarction | CPT/HCPCS: 92507 ==

== ENCOUNTER → 2021-11-15 16:17 | Outpatient (BNVA) | payer MEDICAID, SELFPAY | PROVIDERS: PCP Nurse Practitioner; Visit Provider Nurse Practitioner Family | DX: I10 Essential (primary) hypertension (principal) | CPT/HCPCS: 80053; 80061; 84443; 85025 ==

== ENCOUNTER → 2023-01-02 16:24 | Outpatient (BNVA) | payer MEDICAID, SELFPAY | PROVIDERS: PCP Nurse Practitioner; Visit Provider Nurse Practitioner Family | DX: I10 Essential (primary) hypertension (principal); I63.9 Cerebral infarction, unspecified; E78.5 Hyperlipidemia, unspecified | CPT/HCPCS: 80053; 80061; 84443; 85025 ==

== ENCOUNTER → 2024-07-10 07:43 | Outpatient (BNVA) | payer MEDICARE, MEDICAID, SELFPAY | PROVIDERS: PCP Nurse Practitioner; Visit Provider Podiatrist Foot & Ankle Surgery | DX: L60.8 Other nail disorders (principal); L60.0 Ingrowing nail | CPT/HCPCS: 11750; 99203 ==

== ENCOUNTER → 2024-11-27 09:27 | Outpatient (BNVA) | payer MEDICARE, MEDICAID, SELFPAY | PROVIDERS: PCP Nurse Practitioner; Visit Provider Nurse Practitioner | DX: I48.91 Unspecified atrial fibrillation (principal); I10 Essential (primary) hypertension | CPT/HCPCS: 80053; 80061; 85025 ==

== ENCOUNTER → 2025-05-21 09:53 | Outpatient (BNVA) | payer MEDICARE, MEDICAID, SELFPAY | PROVIDERS: PCP Nurse Practitioner; Visit Provider Nurse Practitioner | DX: I10 Essential (primary) hypertension (principal) | CPT/HCPCS: 80053; 80061; 84443 ==